=== PATIENT | male | born 1995 | race African-American/Black ===

== ENCOUNTER 2017-04-14 01:46 | Emergency (ER) | payer OTHER, MEDICAID ==
[~2017-04-14] VITALS: Ht 190.5 cm; Wt 145.0 kg
[2017-04-14 03:43] LABS: BASOPHILS % 1.1 % (0.0-2.0); CARBON DIOXIDE 26 mEq/L (21-32); CHLORIDE 106 mEq/L (98-107); EOSINOPHILS % 0.8 % (0.0-5.0); HEMATOCRIT. 44.4 % (42.0-52.0); HEMOGLOBIN. 14.7 g/dL (14.0-18.0); LYMPHOCYTES % 32.9 % (20.0-50.0); MEAN CORPUSCULAR HEMOGLOBIN 28.5 pg (28.0-32.0); MEAN PLATELET VOLUME 8.4 fl (7.4-10.4); MONOCYTES % 8.4 % (2.0-8.0); NEUTROPHILS % 56.8 % (40.0-76.0); PLATELET 207 x1000/uL (130-400); RED BLOOD CELL COUNT 5.17 mill/uL (4.7-6.1); RED CELL DISTRIBUTION WIDTH 14.2 % (11.6-14.6); TROPONIN I < 0.02 ng/mL (0.00-0.04)
[2017-04-14 05:13] VITALS: BP 151/81
== END 2017-04-14 05:34 | disposition home or self-care (01) ==
LOC: ER 02:34
DX: R07.9 Chest pain, unspecified (principal)
CPT/HCPCS: 36415; 71010; 80053; 84484; 85025; 85379; 93005; 99285; Z7610